=== PATIENT | female | born 1960 | race Caucasian/White ===

== ENCOUNTER 2019-05-20 06:46 | Day surgery (SDC) | payer OTHER ==
[2019-05-20] MEDS ORDERED: FENTAnyl 50 MCG/ML VIAL (08:21)
[2019-05-20] MEDS ORDERED: LIDOCAINE 100 MG SYRINGE (08:21)
[2019-05-20] MEDS ORDERED: PROPOFOL 40 ML (08:21)
== END 2019-05-20 11:41 | disposition home or self-care (01) ==
LOC: GIL 06:46
DX: R19.5 Other fecal abnormalities (principal); K20.8 Other esophagitis; D12.4 Benign neoplasm of descending colon; D12.8 Benign neoplasm of rectum; K29.50 Unspecified chronic gastritis without bleeding; K64.9 Unspecified hemorrhoids; E11.9 Type 2 diabetes mellitus without complications; I10 Essential (primary) hypertension
CPT/HCPCS: 43239; 82962; 88305; 88312; 88313